=== PATIENT | male | born 2005 | race Two or more races ===

== ENCOUNTER 2024-04-11 08:57 | Emergency (ER) | payer MEDICAID, SELFPAY ==
[2024-04-11 09:10] VITALS: BP 141/79; PULSE 81; RESP 16; TEMP 36.8; O2SAT 99; BMI 34.7
--- NOTE | 2024-04-11 09:47 | PD.EDADULT ---
ED General RME/HPI General Chief complaint: General Adult/Misc Complain Stated complaint: POSSIBLY EXPOSED TO HIV AFTER 'ENCOUNTER' Time Seen by Provider: 04/11/24 09:11 Source: patient Arrival date/time: 04/11/24 08:57 This is a 18-year-old male who presented to the emergency department with complaints of a first encounter of unprotected anal sex, with another male. Patient reports he is afraid that he was exposed to HIV unknown HIV status of other partner. Patient is requesting blood test and possibly initiation of PEP. Denies any other concerns Related Data Previous Rx's ?Medication ?Instructions ?Recorded ibuprofen 400 mg tablet (IBU) 400 mg PO Q6H PRN pain #20 tabs 03/10/19 azithromycin 500 mg tablet See Rx Instructions PO .COMPLEX #6 04/02/23 tabs benzonatate 100 mg capsule 100 mg PO TID #14 caps 04/02/23 loratadine 5 mg-pseudoephedrine ER 1 tab PO Q12H PRN congestion #14 02/23/24 120 mg tablet,extended tabs release,12hr (Alavert D-12 Allergy-Sinus) dolutegravir 50 mg tablet 50 mg PO QDAY #28 tabs 04/11/24 tenofovir disoproxil fumarate 300 300 mg PO Q24H #28 tabs 04/11/24 mg tablet Allergies Allergy/AdvReac Type Severity Reaction Status Date / Time No Known Allergies Allergy Unknown Verified 04/11/24 08:59 Review of Systems Review of Systems Systems Reviewed: All systems reviewed, normal except as documented Narrative Review of Systems: Gen: No fever, no chills, no weight loss EYES: No discharge, no visual changes, no pain HEENT: No ear pain, no congestion, no sore throat PULM: No shortness of breath, no cough, no congestion CV: No chest pain, no dyspnea on exertion, no palpitations GI: No nausea, no vomiting, no diarrhea, no pain, no constipation : No frequency, no urgency,? no dysuria Musc/skel: No joint pain, no back pain Skin: No rash? ED Exam Narrative Physical exam: General: Sittiing in Exam table in no acute distress, answering questions appropriately HENT: normocephalic, atraumatic, EOMI, PERRLA, moist mucous membranes Chest: chest wall is nontender Cardiac: regular rate and rhythm, normal S1 and S2, no murmurs, rubs, or gallops, capillary refill ?2 seconds Pulmonary: clear to auscultation bilaterally, no wheezing, crackles, or rhonchi Abdominal: active bowel sounds, soft, nontender, nondistended Neuro: A&OX3, CN II-XII intact, sensation grossly intact bilaterally in UE and LE. Skin: no rashes, no ecchymosis Ext: no lower extremity edema Course Quality Measures none Orders Category Date Time Status CMP [Comprehensive Metabolic Panel] Stat Lab 04/11/24 10:18 Results HIV RAPID [HIV (1&2) Antibody Rapid] Stat Lab 04/11/24 10:18 Completed HIV-1/2 Ag & Ab,4th Gen* Stat Lab 04/11/24 10:18 Received Hepatitis Acute Panel Stat Lab 04/11/24 10:18 Received Vital Signs Vital signs: Vital Signs Temperature 98.3 F 04/11/24 09:10 Pulse Rate 81 04/11/24 09:10 Respiratory Rate 16 04/11/24 09:10 Blood Pressure 141/79 H 04/11/24 09:10 Pulse Oximetry (%) 99 04/11/24 09:10 Oxygen Delivery Method Room Air 04/11/24 09:10 MDM Patient data External records reviewed:: [facility] previous records Clinical information provided by:: patient Social determinants that could affect healthcare access:: none Patient has the following chronic illnesses:: no How is presenting disease/condition affected by chronic disease/condition?: no chronic disease Evaluation data The following diagnostics were reviewed and interpreted by me:: lab results Lab and/or radiology exams considered but not ordered:: no Interpretation Summary: see above Medications Medications considered but not ordered:: yes Medication administrations:: no Consultations Consultation(s) initiated? (list below): No Diagnosis Differential Diagnosis ED Complaint MDM: HIV exposure, requesting for PrEP, requesting for Pap, STI. Most likely diagnosis given after review of the tests above:: HIV PEP treatment Admission Indicated Admission indicated?: not indicated Explain why admission is indicated or not indicated:: Not indicated Admission Request Was there a request for admission?: No Disposition Plan Disposition Plan: Discharge Discharge Attestation Discharge Attestation: The patient and all family members were given an opportunity to ask questions and understood the discharge instructions. Discharge instructions specifically effects, indications for sooner follow up or return to the emergency department, and the expected course of current diagnosis. Patient condition: Stable Medical Decision Making MDM Narrative MDM Narrative: This is a 18-year-old male who presented to the emergency department with complaints of a first encounter of unprotected anal sex, with another male. Patient reports he is afraid that he was exposed to HIV unknown HIV status of other partner. Patient is requesting blood test and possibly initiation of PEP. Denies any other concerns. CMP normal, rapid HIV test negative. After speaking with patient in great detail patient would like to start HIV prophylaxis exposure treatment. Risk and benefits discussed with patient. Advised patient medication should be taken for 28 days advised to follow-up with his PCP. Advised to start using protection. Differential Diagnosis Differential Diagnosis: HIV exposure, requesting for PrEP, requesting for Pap, STI. Lab Data 04/11/24 10:18 Labs: Lab Results 04/11/24 Range/Units 10:18 Sodium 140 (136-145) mMol/L Potassium 4.0 (3.4-5.1) mMol/L Chloride 105 (98-107) mMol/L Carbon Dioxide 28.4 (20.0-31.0) mMol/L Anion Gap 7 (7-16) BUN 11 (9-23) mg/dL Creatinine 0.8 (0.6-1.3) mg/dL Estim Creat Clear Calc 161.0 (>60) mL/min eGFR > 60 (60 - ) See Note BUN/Creatinine Ratio 14 (12-20) Ratio Glucose 103 (74-106) mg/dL Calculated Osmolality 278 (275-295) Calcium 9.8 (8.3-10.6) mg/dL Corrected Calcium 9.8 (8.5-10.1) mg/dL AST 17 (0-34) U/L ALT 25 (10-49) U/L Alkaline Phosphatase 106 (46-116) U/L Total Protein 7.7 (5.7-8.2) gm/dL Albumin 4.9 (3.5-5.0) gm/dL Globulin 2.8 (2.3-3.5) gm/dL Albumin/Globulin Ratio 1.8 (1.2-2.2) HIV 1&2 Antibody Rapid Non-Reactive Discharge Plan Plan Patient Disposition: HOME (Self Care) Patient condition on transfer: Stable Prescriptions/Referrals Prescriptions/Med Rec: New dolutegravir 50 mg tablet 50 mg PO QDAY Qty: 28 0RF tenofovir disoproxil fumarate 300 mg tablet 300 mg PO Q24H Qty: 28 0RF No Action ibuprofen [IBU] 400 mg tablet 400 mg PO Q6H PRN (Reason: pain) Qty: 20 0RF benzonatate 100 mg capsule 100 mg PO TID Qty: 14 0RF azithromycin 500 mg tablet See Rx Instructions .ROUTE .COMPLEX Qty: 6 0RF Rx Instructions: take 500 mg today (day 1), then 250 mg for 4 days (days 2-5) Alavert D-12 Allergy-Sinus 5-120 mg tablet extended release 12 hr 1 tab PO Q12H PRN (Reason: congestion) Qty: 14 0RF Referrals: Jerald Ivy MD [Primary Care Provider] - In 1 week Problem List Clinical Impression: HIV exposure, 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 Your rapid HIV test is negative today. I do recommend you follow-up with your doctor for repeat HIV test within 6 weeks. You are requesting for HIV prophylaxis exposure treatment -I will start you on medications it is 1 tablet/day for 28 days Risk advised. Follow-up with your clinic or For follow-up care. Print Language: Lithuanian Stand Alone Forms: [employer] Award Info., Patient Portal Info Letter
[2024-04-11 11:37] LABS: Alanine Aminotransferase 25 U/L (10-49); Albumin, Serum 4.9 gm/dL (3.5-5.0); Albumin/Globulin Ratio 1.8 (1.2-2.2); Alkaline Phosphatase 106 U/L (46-116); Anion Gap 7 (7-16); Aspartate Amino Transferase 17 U/L (0-34); BUN/Creatinine Ratio 14 Ratio (12-20); Blood Urea Nitrogen 11 mg/dL (9-23); Calcium 9.8 mg/dL (8.3-10.6); Calcium (Corrected) 9.8 mg/dL (8.5-10.1); Carbon Dioxide 28.4 mMol/L (20.0-31.0); Chloride 105 mMol/L (98-107); Creatinine (Component) 0.8 mg/dL (0.6-1.3); Globulin 2.8 gm/dL (2.3-3.5); Glucose 103 mg/dL (74-106); Osmolality,Calculated 278 (275-295); Sodium 140 mMol/L (136-145); Total Protein 7.7 gm/dL (5.7-8.2); eGFR > 60 See Note
[2024-04-11 12:08] LABS: HIV (1&2) Antibody Rapid Non-Reactive
[2024-04-11 14:45] LABS: Bilirubin,Total 0.8 mg/dL (0.3-1.2)
[2024-04-11 16:26] LABS: Hepatitis A Antibody IgM Non Reactive (Non React); Hepatitis B Core Antibody IgM Non Reactive (Non React); Hepatitis B Surface Antigen Non Reactive (Non React); Hepatitis C Antibody Non Reactive (Non React)
[2024-04-15 06:34] LABS: HIV Ag/Ab, 4th Gen NON-REACTIVE
== END 2024-04-11 13:12 | disposition home or self-care (01) ==
PROVIDERS: Nurse Practitioner Primary Care; Emergency Provider Emergency Medicine; PCP Family Medicine
DX: Z20.6 Contact with and (suspected) exposure to human immunodeficiency virus [HIV] (principal); Z72.53 High risk bisexual behavior
CPT/HCPCS: 36415; 80053; 80074; 86703; 87389; 99283

== ENCOUNTER 2025-02-23 10:53 | Emergency (ER) | payer MEDICAID, SELFPAY ==
[2025-02-23 10:54] VITALS: BMI 31.3
[2025-02-23 11:31] VITALS: BP 127/74; PULSE 74; RESP 16; TEMP 37.3; O2SAT 98
--- NOTE | 2025-02-23 11:42 | EDNOTE_ITS ---
<Statement entered by Graciela Pruitt MD - 02/24/25 16:03> As co-signing physician, I was present and available for consult prn. I concur with the plan and care as documented by the midlevel provider. ED Recheck Abnl Lab Rx-RME/HPI General Chief Complaint: General Adult/Misc Complain Stated Complaint: STD AND HEP CHECK Time Seen by Provider: 02/23/25 11:19 Source: patient Arrival date/time: 02/23/25 10:53 19-year-old male with no known medical history presents to the emergency room with a chief complaint of wanting to get checked for STDs. Mode of arrival: ambulatory Limitations: no limitations Related Data Previous Rx's ?Medication ?Instructions ?Recorded ibuprofen 400 mg tablet (IBU) 400 mg PO Q6H PRN pain # 20 tabs 03/10/19 azithromycin 500 mg tablet See Rx Instructions PO .COM PLEX #6 04/02/23 tabs benzonatate 100 mg capsule 100 mg PO TID #14 caps 03/21 08/10 loratadine 5 mg-pseudoephedrine ER 1 tab PO Q12H PRN c ongestion #14 02/23/24 120 mg tablet,extended tabs release,12hr (Alavert D-12 Allergy-Sinus) dolutegravir 50 mg tablet 50 mg PO QDAY #28 tabs 04/11 tenofovir disoproxil fumarate 300 300 mg PO Q24H #28 t abs 04/11/24 mg tablet doxycycline monohydrate 100 mg 100 mg PO BID 7 days #1 4 caps 02/23/25 capsule Allergies Allergy/AdvReac Type Severity Reaction Status Date / Time No Known Allergies Allergy Unknown Verified 04/11/24 08:59 Review of Systems Review of Systems Systems Reviewed: All systems reviewed, normal except as documented Constitutional Constitutional: Reports system reviewed and no additional complaints, except as documented, Denies fatigue, Denies fever(s), Denies headache(s) and Denies weakness Eyes Eyes: Reports system reviewed and no additional complaints, except as documented, Denies blurry vision and Denies change in vision ENT Ears, Nose, Mouth, and Throat: Reports system reviewed and no additional complaints, except as documented, Denies otalgia, Denies headache(s), Denies nasal congestion, Denies throat swelling and Denies vertigo Cardiovascular Cardiovascular: Reports system reviewed and no additional complaints, except as documented, Denies chest pain, Denies dyspnea and Denies dyspnea on exertion Respiratory Respiratory: Reports system reviewed and no additional complaints, except as documented, Denies chest congestion, Denies cough, Denies dyspnea, Denies dyspnea on exertion and Denies wheezing Gastrointestinal Gastrointestinal: Reports system reviewed and no additional complaints, except as documented, Denies abdominal pain, Denies cramping, Denies nausea and Denies vomiting Genitourinary Genitourinary: Reports system reviewed and no additional complaints, except as documented, Denies dysuria and Denies hematuria Musculoskeletal Musculoskeletal: Reports system reviewed and no additional complaints, except as documented and Denies back pain Integumentary/Breasts Skin/Breast: Reports system reviewed and no additional complaints, except as documented and Denies wounds Neurologic Neurologic: Reports system reviewed and no additional complaints, except as documented, Denies confusion, Denies headache(s), Denies lack of coordination, Denies vertigo and Denies weakness Psychiatric Psychiatric: Reports system reviewed and no additional complaints, except as documented, Denies anxiety, Denies confusion, Denies depression, Denies paranoia, Denies suicidal ideation and Denies tactile hallucinations Endocrine Endocrine: Reports system reviewed and no additional complaints, except as documented and Denies fatigue Hematologic/Lymphatic Hematologic/Lymphatic: Reports system reviewed and no additional complaints, except as documented and Denies lymphadenopathy Allergic/Immunologic Allergic/Immunologic: Reports system reviewed and no additional complaints, except as documented, Denies throat swelling, Denies urticaria and Denies wheezing Past Medical History Social History SMOKING STATUS: Never smoker SUBSTANCE USE: does not use ED Exam General Limitations: Present no limitations General appearance: Present alert and in no apparent distress Head Head exam: Present atraumatic Eye Eye exam: Present normal appearance, PERRL and EOMI ENT ENT exam: Present normal exam, normal oropharynx and mucous membranes moist Neck Neck exam: Present normal inspection, full ROM and trachea midline Chest Chest inspection: Present normal inspection and symmetric chest wall rise Respiratory Respiratory exam: Present normal lung sounds bilaterally Cardiovascular Cardiovascular exam: Present regular rate, normal rhythm and normal heart sounds Abdominal Exam Abdominal exam: Present soft and normal bowel sounds Extremities Exam Extremities exam: Present normal inspection and full ROM Back Exam Back exam: Present normal inspection and full ROM Neurological Exam Neurological exam: Present alert, oriented X3 and CN II-XII intact Psychiatric Psychiatric exam: Present normal affect and normal mood Skin Skin exam: Present warm, dry, intact and normal color Course Quality Measures none Orders Category Date Time Status cefTRIAXone [Rocephin] 1,000 mg Med 02/23/25 11:40 Discontinued Lidocaine 1% 20 ml [Xylocaine 1% 20 ML] 2.1 ml IM X1 Vital Signs Vital signs: Vital Signs Temperature 99.2 F 02/23/25 11:31 Pulse Rate 74 02/23/25 11:31 Respiratory Rate 16 02/23/25 11:31 Blood Pressure 127/74 02/23/25 11:31 Pulse Oximetry (%) 98 02/23/25 11:31 Oxygen Delivery Method Room Air 02/23/25 11:31 Recheck / Abnormal Lab / Rx MDM Narrative MDM Narrative:: 19-year-old male with no known medical history presents to the emergency room with a chief complaint of wanting to get checked for STDs. Patient is hemodynamically stable and in no apparent distress Patient denies any dysuria any urethral discharge, any pain in the urethra or any peeling. Patient has no signs and symptoms but states. He is here to make sure that he did not get any STDs from his sexual encounter yesterday. The patient was treated prophylactically for gonorrhea and chlamydia and the patient was educated to follow-up with his primary care provider for other STD testing as his sexual encounter was just yesterday afternoon Patient was discharged and educated to follow-up with primary care provider in the next 24 to 48 hours and return to the emergency room for any evidence of worsening signs or symptoms Patient data External records reviewed:: [facility] previous records Clinical information provided by:: patient Social determinants that could affect healthcare access:: none Patient has the following chronic illnesses:: No chronic illness How is presenting disease/condition affected by chronic disease/condition?: no chronic disease Evaluation data The following diagnostics were reviewed and interpreted by me:: lab results and radiology exam(s) Lab and/or radiology exams considered but not ordered:: Labs and radiology exams considered and ordered Interpretation Summary: N/A Medications / Prescriptions Medications or Prescriptions considered but not ordered:: Medication given Medication administrations:: Medication Administration History Discontinued Medications Ceftriaxone Sodium 1,000 mg/ (Lidocaine HCl 2.1 ml) 0 mg IM X1 ONE Stop: 02/23/25 11:41 Last Admin: 02/23/25 12:10 Dose: 1 mg Documented By: ARF Medication given Consultations Consultation(s) initiated? (list below): No Diagnosis Recheck Differential Diagnosis: other (Encounter for assessment of STD exposure) Most likely diagnosis given after review of the tests above:: Encounter for STD exposure Admission Indicated Admission indicated?: not indicated Admission Request Was there a request for admission?: No Disposition Plan Disposition Plan: Discharge Discharge Attestation Discharge Attestation: The patient and all family members were given an opportunity to ask questions and understood the discharge instructions. Discharge instructions specifically effects, indications for sooner follow up or return to the emergency department, and the expected course of current diagnosis. Patient condition: Stable Discharge Plan Plan Patient Disposition: HOME (Self Care) Discharge Disposition comment: Stable Prescriptions/Referrals Prescriptions/Med Rec: New doxycycline monohydrate 100 mg capsule 100 mg PO BID 7 Days Qty: 14 0RF No Action ibuprofen [IBU] 400 mg tablet 400 mg PO Q6H PRN (Reason: pain) Qty: 20 0RF dolutegravir 50 mg tablet 50 mg PO QDAY Qty: 28 0RF tenofovir disoproxil fumarate 300 mg tablet 300 mg PO Q24H Qty: 28 0RF benzonatate 100 mg capsule 100 mg PO TID Qty: 14 0RF azithromycin 500 mg tablet See Rx Instructions .ROUTE .COMPLEX Qty: 6 0RF Rx Instructions: take 500 mg today (day 1), then 250 mg for 4 days (days 2-5) Alavert D-12 Allergy-Sinus 5-120 mg tablet extended release 12 hr 1 tab PO Q12H PRN (Reason: congestion) Qty: 14 0RF Problem List Clinical Impression: Encounter for assessment of STD exposure Patient/Caregiver Discharge Instructions Additional Instructions: Please follow-up with your primary care provider in the next 24 to 48 hours Antibiotics are sent to your pharmacy please pick them up and take them as indicated For any evidence of worsening signs or symptoms return to the emergency room immediately Print Language: Bengali Stand Alone Forms: [employer] Award Info., Work/School Release, Patient Portal Info Letter PA/SIOBHAN Supervising Physician DOROTHY/SIOBHAN Supervising Physician: Dr. PRUITT
[2025-02-23] MEDS: cefTRIAXone 1,000 MG, LIDOCAINE 1% 20 ML 2.1 ML IM (12:10)
== END 2025-02-23 12:11 | disposition home or self-care (01) ==
LOC: SERX 11:58
PROVIDERS: Emergency Provider Emergency Medicine; PCP Nurse Practitioner Women's Health
DX: Z20.2 Contact with and (suspected) exposure to infections with a predominantly sexual mode of transmission (principal)
CPT/HCPCS: 96372; 99282; J0696; J3490

== ENCOUNTER 2025-02-24 08:22 | Emergency (ER) | payer MEDICAID, SELFPAY ==
[2025-02-24 08:30] VITALS: BP 151/71; PULSE 78; RESP 16; TEMP 37.2; O2SAT 98; BMI 32.1
[2025-02-24 09:08] LABS: Collection Type, Urine Clean Catch; Squamous Epithelial Cell,Urine 0 /hpf (0-5)
--- NOTE | 2025-02-24 09:21 | EDNOTE_ITS ---
<Statement entered by Graciela Pruitt MD - 02/24/25 16:01> As co-signing physician, I was present and available for consult prn. I concur with the plan and care as documented by the midlevel provider. ED General RME/HPI General Chief complaint: General Adult/Misc Complain Stated complaint: WANTS TO TALK TO PROVIDER RE: GETTING HIV Time Seen by Provider: 02/24/25 08:28 Source: patient Arrival date/time: 02/24/25 08:22 19-year-old male with no known medical history presents to the emergency room with a chief complaint of wanting to start PEP for possible exposure to HIV 2 days ago Mode of arrival: ambulatory Limitations: no limitations Related Data Previous Rx's ?Medication ?Instructions ?Recorded ibuprofen 400 mg tablet (IBU) 400 mg PO Q6H PRN pain # 20 tabs 03/10/19 azithromycin 500 mg tablet See Rx Instructions PO .COM PLEX #6 04/02/23 tabs benzonatate 100 mg capsule 100 mg PO TID #14 caps 03/21 08/10 loratadine 5 mg-pseudoephedrine ER 1 tab PO Q12H PRN c ongestion #14 02/23/24 120 mg tablet,extended tabs release,12hr (Alavert D-12 Allergy-Sinus) dolutegravir 50 mg tablet 50 mg PO QDAY #28 tabs 04/11 tenofovir disoproxil fumarate 300 300 mg PO Q24H #28 t abs 04/11/24 mg tablet doxycycline monohydrate 100 mg 100 mg PO BID 7 days #1 4 caps 02/23/25 capsule bictegravir 50 mg-emtricitabine 1 tab PO QDAY 28 days #28 tabs 02/24/25 200 mg-tenofovir alafenam 25 mg tablet Allergies Allergy/AdvReac Type Severity Reaction Status Date / Time No Known Allergies Allergy Unknown Verified 02/24/25 08:25 Review of Systems Review of Systems Systems Reviewed: All systems reviewed, normal except as documented Constitutional Constitutional: Reports system reviewed and no additional complaints, except as documented, Denies fatigue, Denies fever(s), Denies headache(s) and Denies weakness Eyes Eyes: Reports system reviewed and no additional complaints, except as docum ented, Denies blurry vision and Denies change in vision ENT Ears, Nose, Mouth, and Throat: Reports system reviewed and no additional complaints, except as documented, Denies otalgia, Denies headache(s), Denies nasal congestion, Denies throat swelling and Denies vertigo Cardiovascular Cardiovascular: Reports system reviewed and no additional complaints, except as documented, Denies chest pain, Denies dyspnea and Denies dyspnea on exertion Respiratory Respiratory: Reports system reviewed and no additional complaints, except as documented, Denies chest congestion, Denies cough, Denies dyspnea, Denies dyspnea on exertion and Denies wheezing Gastrointestinal Gastrointestinal: Reports system reviewed and no additional complaints, except as documented, Denies abdominal pain, Denies cramping, Denies nausea and Denies vomiting Genitourinary Genitourinary: Reports system reviewed and no additional complaints, except as documented, Denies dysuria and Denies hematuria Musculoskeletal Musculoskeletal: Reports system reviewed and no additional complaints, except as documented and Denies back pain Integumentary/Breasts Skin/Breast: Reports system reviewed and no additional complaints, except as documented and Denies wounds Neurologic Neurologic: Reports system reviewed and no additional complaints, except as documented, Denies confusion, Denies headache(s), Denies lack of coordination, Denies vertigo and Denies weakness Psychiatric Psychiatric: Reports system reviewed and no additional complaints, except as documented, Denies anxiety, Denies confusion, Denies depression, Denies paranoia, Denies suicidal ideation and Denies tactile hallucinations Endocrine Endocrine: Reports system reviewed and no additional complaints, except as documented and Denies fatigue Hematologic/Lymphatic Hematologic/Lymphatic: Reports system reviewed and no additional complaints, except as documented and Denies lymphadenopathy Allergic/Immunologic Allergic/Immunologic: Reports system reviewed and no additional complaints, except as documented, Denies throat swelling, Denies urticaria and Denies wheezing Past Medical History Social History SMOKING STATUS: Never smoker SUBSTANCE USE: does not use ED Exam General Limitations: Present no limitations General appearance: Present alert and in no apparent distress Head Head exam: Present atraumatic Eye Eye exam: Present normal appearance, PERRL and EOMI ENT ENT exam: Present normal exam, normal oropharynx and mucous membranes moist Neck Neck exam: Present normal inspection, full ROM and trachea midline Chest Chest inspection: Present normal inspection and symmetric chest wall rise Respiratory Respiratory exam: Present normal lung sounds bilaterally Cardiovascular Cardiovascular exam: Present regular rate, normal rhythm and normal heart sounds Abdominal Exam Abdominal exam: Present soft and normal bowel sounds Extremities Exam Extremities exam: Present normal inspection and full ROM Back Exam Back exam: Present normal inspection and full ROM Neurological Exam Neurological exam: Present alert, oriented X3 and CN II-XII intact Psychiatric Psychiatric exam: Present normal affect and normal mood Skin Skin exam: Present warm, dry, intact and normal color Course Quality Measures none Orders Category Date Time Status Chlamydia/GC/TV - PCR Stat Lab 02/24/25 09:00 Received HIV (1&2) Antibody Rapid Stat Lab 02/24/25 08:49 Completed Hepatitis B Surface Ab Stat Lab 02/24/25 08:49 Received Hepatitis C Antibody Stat Lab 02/24/25 08:49 Received Syphilis Stat Lab 02/24/25 08:49 Received UA, C/S IF [Urinalysis, C/S if Indicated] Stat Lab 02/24/25 09:00 Received Vital Signs Vital signs: Vital Signs Temperature 98.9 F 02/24/25 08:30 Pulse Rate 78 02/24/25 08:30 Respiratory Rate 16 02/24/25 08:30 Blood Pressure 151/71 H 02/24/25 08:30 Pulse Oximetry (%) 98 02/24/25 08:30 Oxygen Delivery Method Room Air 02/24/25 08:30 Discharge Plan Plan Patient Disposition: HOME (Self Care) Discharge Disposition comment: Stable Prescriptions/Referrals Prescriptions/Med Rec: New gzvgbsibe-wauagzsd-analcyx ala 50-200-25 mg tablet 1 tab PO QDAY 28 Days Qty: 28 0RF No Action ibuprofen [IBU] 400 mg tablet 400 mg PO Q6H PRN (Reason: pain) Qty: 20 0RF dolutegravir 50 mg tablet 50 mg PO QDAY Qty: 28 0RF tenofovir disoproxil fumarate 300 mg tablet 300 mg PO Q24H Qty: 28 0RF doxycycline monohydrate 100 mg capsule 100 mg PO BID 7 Days Qty: 14 0RF benzonatate 100 mg capsule 100 mg PO TID Qty: 14 0RF azithromycin 500 mg tablet See Rx Instructions .ROUTE .COMPLEX Qty: 6 0RF Rx Instructions: take 500 mg today (day 1), then 250 mg for 4 days (days 2-5) Alavert D-12 Allergy-Sinus 5-120 mg tablet extended release 12 hr 1 tab PO Q12H PRN (Reason: congestion) Qty: 14 0RF Problem List Clinical Impression: Encounter for pre-exposure prophylaxis for HIV Patient/Caregiver Discharge Instructions Additional Instructions: Please follow-up with your primary care provider in the next 24 to 48 hours You were started on HIV postexposure prophylaxis. Please parts picker your medication and begin taking it for the next 28 days. For any worsening signs or symptoms please return to the emergency room immediately Print Language: Divehi Stand Alone Forms: Flores Award Info., Work/School Release, Patient Portal Info Letter PA/SIOBHAN Supervising Physician DOROTHY/SIOBHAN Supervising Physician: Dr. Baker MDM Narrative MDM hospital course (for use when minimal MDM required): 19-year-old male with no known medical history presents to the emergency room with a chief complaint of wanting to start PEP for possible exposure to HIV 2 days ago Patient is hemodynamically stable and in no apparent distress I patient was seen here yesterday where he was educated on the pros and cons of starting PEP for HIV prophylaxis. After thinking it over last night the patient decided to come into the emergency room and start PEP. Blood work was done and the patient will follow-up with his primary care provider regarding this. Postexposure prophylaxis for HIV medication was sent over to his pharmacy and the patient will begin this treatment for the next 28 days. The patient was educated to follow-up with his primary care provider or return to the emergency room for any evidence of worsening signs or symptoms Clinical Information Provided by: none Medical Records reviewed None Meds/Rx considered, not ordered None Labs/Rad/Tests considered, not ordered None Chronic Illness/Social Conditions which may negatively complicate care or outcome(s)-explain: None or not applicable EKG EKG not done Labs Labs: none Imaging Imaging interpretation: none Medication Administration(s) none Diagnosis Differential Diagnosis ED Complaint MDM: Encounter for assessment of STD exposure/encounter for preexposure prophyla Diagnoses ruled out and/or further discussions: Encounter for assessment of STD exposure
[2025-02-24 09:31] LABS: Bilirubin,Urine Negative (Negative); Blood,Urine Negative (Negative); Clarity,Urine Clear (Clear/Hazy); Color,Urine Lt-Yellow (Lt Yel-Yel); Culture Indicated,Urine Not Indicated; Glucose, Urine Negative (Negative); Ketones,Urine Negative (Negative); Leukocyte Esterase,Urine Negative (Negative); Nitrite,Urine Negative (Negative); PH,Urine 7.0 (5.0-7.0); Protein,Urine Negative (Neg - Trace); RBC,Urine 1 /hpf (0-3); Specific Gravity,Urine 1.012 (1.001-1.035); Urobilinogen,Urine Negative mg/dL (0.0-1.0); WBC,Urine < 1 /hpf (0-5)
[2025-02-24 09:32] LABS: HIV (1&2) Antibody Rapid Non-Reactive
[2025-02-24 09:49] LABS: Syphilis Nonreactive (Nonreactive)
[2025-02-24 10:04] LABS: Hepatitis B Surface Ab Reactive (Immune) (Immune); Hepatitis C Antibody Non Reactive (Non React)
[2025-02-24 10:18] LABS: Sperm,Urine Present
[2025-02-24 12:41] LABS: Chlamydia trachomatis PCR Negative (Not Detect); Neisseria Gonorrhoeae DNA PCR Negative (Not Detect); Trichomonas Negative (Negative)
== END 2025-02-24 11:12 | disposition home or self-care (01) ==
LOC: SERX 08:55
PROVIDERS: Emergency Provider Nurse Practitioner Family; PCP Family Medicine
DX: Z29.81 Encounter for HIV pre-exposure prophylaxis (principal)
CPT/HCPCS: 36415; 81001; 86703; 86706; 86780; 86803; 87491; 87591; 87661; 99283